=== PATIENT | female | born 1960 | race Asian ===

== ENCOUNTER 2017-05-27 21:04 | Emergency (ER) | payer BC ==
[~2017-05-27] VITALS: Ht 157.5 cm; Wt 85.0 kg
[2017-05-27 21:07] VITALS: BP 231/106; PULSE 98; RESP 18; TEMP 98.7; O2SAT 99
--- NOTE | 2017-05-27 21:12 | PD ---
Physical Exam Date Seen by Provider: May 27, 2017 Time Seen by Provider: 21:10 Narrative 56 yo female with history of stroke, DM and HTN here for eval of loss of vision. Eye pain on right two weeks ago. Blurry since yesterday. Lost vision today around 10. No other symptoms. No numbness, tingling, weakness. no headache. no chest pain. Vitals are stable in triage except for high BP. Patient was immediately bedded. Data Data Last Documented VS Vital Signs Date Time Temp Pulse Resp B/P Pulse Ox O2 Delivery O2 Flow Rate FiO2 05/27/17 21:07 98.7 98 18 231/106 99 Room Air [facility] Medical Record Reviewed: Yes Supervised Visit with ASIF: No Owen Lo May 27, 2017 21:12
[2017-05-27 21:33] VITALS: BP 193/88; PULSE 100; RESP 16
[2017-05-27] MEDS ORDERED: GLIP5TAB PO (21:33)
[2017-05-27] MEDS ORDERED: AMLO5CAP3 PO (21:33)
[2017-05-27] MEDS ORDERED: HYDR12.57 PO (21:33)
[2017-05-27] MEDS ORDERED: LEVO75TA3 PO (21:33)
--- NOTE | 2017-05-27 21:36 | PD ---
HPI Chief Complaint: Eye Problems/Injury Time Seen by Provider: 21:36 Travel History International Travel<30 days: No Contact w/Intl Traveler<30days: No Traveled to known affect area: No History of Present Illness HPI 56-year-old female with a history of hypertension and diabetes presents to the emergency department for evaluation of right eye vision loss. The patient states that for the past week she has had irritation in the right eye. States that she's had some vision changes in the right eye the last week as well. States that she saw an press service reader Dr. Kowalski at [facility] this afternoon who examined her I and told her that she may be having an optic stroke but otherwise her findings were unremarkable. She states that he scheduled her next week for follow-up and told her that if her symptoms worsen to come to the emergency room. States that today she has had worsening of vision loss in the right eye. States that she has significant blurred vision and the superior aspect of her visual field is essentially black. Denies any floaters, headache, lightheadedness, nausea, vomiting, numbness or tingling, weakness, chest pain, shortness of breath. PCP Dr. Sharan Bee. No other complaints. PFSH Past Medical History Diabetes: Yes Patient Takes Glucophage: Yes Diminished Hearing: No Hypertension: Yes Medical other: Yes (COLITIS) Tetanus Vaccination: Unknown ?: Not Past Surgical History Surgical History: No Previous Surgery Social History Alcohol Use: No Tobacco Use: No Substance Use: No Allergies-Medications (Allergen,Severity, Reaction): Coded Allergies: No Known Allergies (Unverified , 05/27/17) Reported Meds & Prescriptions Reported Meds & Active Scripts Active Reported Levothyroxine (Levothyroxine Sodium) 75 Mcg Tab 75 Mcg PO DAILY Glipizide-Metformin 5-500 Mg Tab 1 Tab PO BID Amlodipine-Benazepril 5-20 Mg Cap 1 Cap PO DAILY Hydrochlorothiazide 12.5 Mg Cap 12.5 Mg PO DAILY Review of Systems Except as stated in HPI: all other systems reviewed are Neg Physical Exam Narrative GENERAL: Well-nourished and well-developed pleasant female patient in no acute distress who is nontoxic appearing. SKIN: Warm and dry. HEAD: Normocephalic and atraumatic. EYES: Mild scleral injection of the right eye with increased tearing. Pupils are slightly dilated secondary to exam performed by Registered Radiologic Technologist. No hyphema noted. PERRLA. EOMI. Fluorescein stain reveals no uptake. No ulcerations, abrasions, or foreign bodies noted the cornea is clear. Intraocular pressure in the right eye is 15. ENT: No nasal drainage noted. Oropharynx is clear. NECK: Supple and the trachea is midline. CARDIOVASCULAR: Regular rate and rhythm. RESPIRATORY: Breath sounds are equal bilaterally with no accessory muscle use, wheezing, rhonchi, or crackles. GASTROINTESTINAL: Abdomen is soft, non-tender, and nondistended. MUSCULOSKELETAL: No obvious deformities, swelling, cyanosis, or ecchymosis is present throughout the upper and lower extremities. Patient has full range of motion without any signs of neurovascular compromise. Strength 5/5 upper and lower extremities equal bilaterally. NEUROLOGICAL: Awake, alert, and oriented. Normal speech and gait. No facial droop. Cranial nerves are grossly intact. Data Data Last Documented VS Vital Signs Date Time Temp Pulse Resp B/P Pulse Ox O2 Delivery O2 Flow Rate FiO2 05/27/17 21:33 100 16 193/88 05/27/17 21:07 98.7 99 Room Air Orders Proparacaine 0.5% Opth Soln (Alcaine 0.5 (05/27/17 21:45) Ct Brain W/O Iv Contrast(Rout) (05/27/17 21:34) Basic Metabolic Panel (Bmp) (05/27/17 22:21) Complete Blood Count With Diff (05/27/17 22:21) Iv Access Insert/Monitor (05/27/17 22:21) Ecg Monitoring (05/27/17 22:21) Oximetry (05/27/17 22:21) Sodium Chloride 0.9% Flush (Ns Flush) (05/27/17 22:30) Sodium Chlor 0.9% 1000 Ml Inj (Ns 1000 M (05/27/17 22:21) Mri Brain W&W/O Contrast (05/27/17 ) [facility] Medical Decision Making Medical Screen Exam Complete: Yes Emergency Medical Condition: Yes Differential Diagnosis Vascular occlusion versus retinal detachment versus acute maculopathy versus optic nerve dysfunction Narrative Course 56-year-old female presents to the emergency department for evaluation of right eye irritation and vision loss over the last week. Patient is afebrile. She is initially hypertensive with a blood pressure 231/106. Blood pressure is now 193/88. She is reporting she took all of her blood pressure medications today, states that she typically runs around 120/80. No focal neurologic deficits. Intraocular pressures are within normal limits. Forcing staining is negative. Head CT has been ordered and is pending. Head CT is unremarkable. MRI of the brain with and without contrast has been ordered and is pending. Patient signed out to Dr. Chaudhary who will assume care of the patient and disposition pending MRI results. Echo Lugo May 27, 2017 21:36
[2017-05-27] MEDS ORDERED: PROPARACAINE HCL 0.5% OPHT SOLN 15 ML BTL RIGHT EYE ONE (21:45)
--- NOTE | 2017-05-27 22:05 | RADRPT ---
EXAM DATE/TIME: 05/27/2017 21:53 [facility] COMPARISON: No previous studies available for comparison. INDICATIONS : loss of vision in right eye. Evaluate for stroke. RADIATION DOSE: 31.11 CTDIvol (mGy) MEDICAL HISTORY : Hypertension. Diabetes mellitus type 2. Colitis SURGICAL HISTORY : None. ENCOUNTER: Initial ACUITY: 1 day PAIN SCALE: 0/10 LOCATION: cranial TECHNIQUE: Multiple contiguous axial images were obtained of the head. Using automated exposure control and adj ustment of the mA and/or kV according to patient size, radiation dose was kept as low as reasonably a chievable to obtain optimal diagnostic quality images. DICOM format image data is available electro nically for review and comparison. FINDINGS: CEREBRUM: The ventricles are normal for age. No evidence of midline shift, mass lesion, hemorrhage or acute in farction. No extra-axial fluid collections are seen. POSTERIOR FOSSA: The cerebellum and brainstem are intact. The 4th ventricle is midline. The cerebellopontine angle i s unremarkable. EXTRACRANIAL: The visualized portion of the orbits is intact. SKULL: The calvaria is intact. No evidence of skull fracture. CONCLUSION: Negative noncontrast CT. Elroy Fernandez MD on May 27, 2017 at 22:01 Board Certified Radiologist. This report was verified electronically.
[2017-05-27] MEDS ORDERED: SODIUM CHLOR 0.9% 1000 ML INJ 1,000 ML IV SCH (22:21)
[2017-05-27] MEDS ORDERED: SODIUM CHLORIDE 0.9% FLUSH 10 ML FLUSH IV FLUSH PRN (22:30)
[2017-05-27] MEDS ORDERED: ENALAPRILAT 1.25 MG/ML VIAL IV PUSH ONE (22:45)
[2017-05-27 22:48] VITALS: BP 146/64; PULSE 104; RESP 16; O2SAT 100
[2017-05-27 22:49] LABS: AUTOMATED NEUTROPHIL # 7.4 TH/MM3 (1.8-7.7); BASOPHIL # 0.1 TH/MM3 (0-0.2); BASOPHIL % 0.6 % (0.0-2.0); EOSINOPHIL % 0.5 % (0.0-4.0); HEMATOCRIT 40.5 % (35.0-46.0); HEMO FLAGS DIFF FINAL; LYMPH % 19.2 % (9.0-44.0); LYMPHOCYTE # 1.9 TH/MM3 (1.0-4.8); MEAN CELL VOLUME 71.5 FL (80.0-100.0); MEAN CORPUSCULAR HEMOGLOBIN 23.5 PG (27.0-34.0); MEAN CORPUSCULAR HGB CONC 32.8 % (32.0-36.0); MONO % 6.5 % (0.0-8.0); NEUT % 73.2 % (16.0-70.0); PLATELET COUNT 282 TH/MM3 (150-450); RED BLOOD COUNT 5.67 MIL/MM3 (4.00-5.30); RED CELL DISTRIBUTION WIDTH 16.1 % (11.6-17.2); WHITE BLOOD COUNT 10.2 TH/MM3 (4.0-11.0)
--- NOTE | 2017-05-27 22:49 | PD ---
Physical Exam Narrative GENERAL: SKIN: Warm and dry. HEAD: Atraumatic. Normocephalic. EYES: Pupils equal and round. No scleral icterus. No injection or drainage. LIMITED FIELD OF VISION WITH ESSENTIALLY NO VISION ON SUPERIOR QUADRANTS RT EYE (NO PAIN). EOMI, ALSO NEG RAMO'S SIGN ON FLOURESCEIN STAINING. CONFIRMED NORMAL TONOPEN IOP MEASUREMENTS I WAS BEDSIDE WHEN EXAM PERFORMED BY DANELLE WEBER ENT: No nasal bleeding or discharge. Mucous membranes pink and moist. NECK: Trachea midline. No JVD. CARDIOVASCULAR: Regular rate and rhythm. RESPIRATORY: No accessory muscle use. Clear to auscultation. Breath sounds equal bilaterally. GASTROINTESTINAL: Abdomen soft, non-tender, nondistended. Hepatic and splenic margins not palpable. MUSCULOSKELETAL: Extremities without clubbing, cyanosis, or edema. No obvious deformities. NEUROLOGICAL: Awake and alert. No obvious cranial nerve deficits. Motor grossly within normal limits. Five out of 5 muscle strength in the arms and legs. Normal speech. NO LATERALIZING SIGNS PSYCHIATRIC: Appropriate mood and affect; insight and judgment normal. Data Data Last Documented VS Vital Signs Date Time Temp Pulse Resp B/P Pulse Ox O2 Delivery O2 Flow Rate FiO2 05/27/17 22:48 104 16 146/64 100 Room Air 05/27/17 21:07 98.7 Orders Proparacaine 0.5% Opth Soln (Alcaine 0.5 (05/27/17 21:45) Ct Brain W/O Iv Contrast(Rout) (05/27/17 21:34) Basic Metabolic Panel (Bmp) (05/27/17 22:21) Complete Blood Count With Diff (05/27/17 22:21) Iv Access Insert/Monitor (05/27/17 22:21) Ecg Monitoring (05/27/17 22:21) Oximetry (05/27/17 22:21) Sodium Chloride 0.9% Flush (Ns Flush) (05/27/17 22:30) Sodium Chlor 0.9% 1000 Ml Inj (Ns 1000 M (05/27/17 22:21) Mri Brain W/O Contrast (05/27/17 22:28) Enalaprilat Inj (Vasotec Inj) (05/27/17 22:45) Labs Laboratory Tests Test 05/27/17 22:35 White Blood Count 10.2 TH/MM3 Red Blood Count 5.67 MIL/MM3 Hemoglobin 13.3 GM/DL Hematocrit 40.5 % Mean Corpuscular Volume 71.5 FL Mean Corpuscular Hemoglobin 23.5 PG Mean Corpuscular Hemoglobin 32.8 % Concent Red Cell Distribution Width 16.1 % Platelet Count 282 TH/MM3 Mean Platelet Volume 9.1 FL Neutrophils (%) (Auto) 73.2 % Lymphocytes (%) (Auto) 19.2 % Monocytes (%) (Auto) 6.5 % Eosinophils (%) (Auto) 0.5 % Basophils (%) (Auto) 0.6 % Neutrophils # (Auto) 7.4 TH/MM3 Lymphocytes # (Auto) 1.9 TH/MM3 Monocytes # (Auto) 0.7 TH/MM3 Eosinophils # (Auto) 0.0 TH/MM3 Basophils # (Auto) 0.1 TH/MM3 CBC Comment DIFF FINAL Differential Comment Sodium Level 137 MEQ/L Potassium Level 4.3 MEQ/L Chloride Level 103 MEQ/L Carbon Dioxide Level 27.3 MEQ/L Anion Gap 7 MEQ/L Blood Urea Nitrogen 9 MG/DL Creatinine 0.93 MG/DL Estimat Glomerular Filtration 62 ML/MIN Rate Random Glucose 234 MG/DL Calcium Level 9.7 MG/DL MDM Medical Record Reviewed: Yes Supervised Visit with ASIF: No Differential Diagnosis GLAUCOMA V ICH V OPTIC CVA V RETINAL DETACHMENT V GLOBE PERFORATION Narrative Course MRI REPORTED NEGATIVE AT 2340 BY RADIOLOGY, WILL D/C PATIENT HOME AND FOLLOWUP WITH DR SANCHEZ (SP?) THROUGH [facility] [place]. AND CAN TAKE STUDIES FROM TODAY'S VISIT VIA MEDICAL RECORDS IN ORDER TO OBTAIN ALL STUDIES AND REPORTS IN THEIR COMPLETENESS. Diagnosis Primary Impression: RIGHT EYE PARTIAL VISUAL LOSS-NONACUTE Additional Impression: HYPERTENSION-CONTROLLED IN EMERGENCY DEPARTMENT Patient Instructions: General Instructions, Your Vision (GEN) Additional Instruction: PLEASE CONTACT YOUR EYE DOCTOR AND KEEP YOUR FOLLOW UP WITH HIM. TODAY NO MAJOR EVIDENCE OF ANY BRAIN MASS NOR MAJOR ISCHEMIC NOR HEMORRHAGIC STROKE BASED ON CAT SCAN AND MRI OF BRAIN. ALSO NO EVIDENCE OF GLAUCOMA TODAY Disposition: 01 DISCHARGE HOME Condition: Stable Jovany Chaudhary MD May 27, 2017 22:49 Jovany Chaudhary MD May 27, 2017 22:49
[2017-05-27 23:15] LABS: BICARBONATE 27.3 MEQ/L (21.0-32.0); POTASSIUM 4.3 MEQ/L (3.5-5.1)
--- NOTE | 2017-05-27 23:40 | RADRPT ---
EXAM DATE/TIME: 05/27/2017 23:00 [facility] COMPARISON: No previous studies available for comparison. INDICATIONS : CVA. Loss of vision in right eye. MEDICAL HISTORY : Hypertension. Diabetes mellitus type 2. SURGICAL HISTORY : None. ENCOUNTER: Initial ACUITY: 2 day PAIN SCORE: 1/10 LOCATION: Right eye TECHNIQUE: Multiplanar, multisequence MRI of the brain was performed without contrast. FINDINGS: CEREBRUM: The ventricles are normal for age. No evidence of midline shift, mass lesion, hemorrhage or acute in farction. No extraaxial fluid collections are seen. The pituitary gland and suprasellar cistern are normal in configuration. WHITE MATTER: No significant signal abnormalities are seen in the white matter. POSTERIOR FOSSA: The cerebellum and brainstem are intact. The 4th ventricle is midline. The cerebellopontine angle is unremarkable. The cerebellar tonsils are normal in position. DIFFUSION IMAGING: No focal areas of restricted diffusion are seen. No evidence of acute infarction. EXTRACRANIAL: The visualized portions of the orbits and paranasal sinuses are unremarkable. CONCLUSION: Negative MRI of the brain without contrast. Jatinder Mendez MD on May 27, 2017 at 23:37 Board Certified Radiologist. This report was verified electronically.
== END 2017-05-28 00:45 | disposition home or self-care (01) ==
LOC: NEPE 21:04
DX: H54.61 Unqualified visual loss, right eye, normal vision left eye (principal); I10 Essential (primary) hypertension; E11.9 Type 2 diabetes mellitus without complications
CPT/HCPCS: 70450; 70551; 80048; 85025; 99285; J7030